=== PATIENT | male | born 1945 ===

== ENCOUNTER 2024-02-07 17:59 | Emergency (ER) | payer MEDICARE, SELFPAY ==
--- NOTE | ~2024-02-07 | XR_ITS ---
EXAM: XR foot RT min 3V DATE: 02/07/2024 18:59 HISTORY: no injury known previous excision done foot absces . COMPARISON: None available. FINDINGS: Decreased mineralization. No fracture or dislocation. No lytic or blastic lesion. Mild sca ttered degenerative changes. No erosion or periosteal change. Soft tissue swelling over the fifth MTP joint. Vascular calcifications. IMPRESSION: No acute osseous finding in the right foot. Soft tissue swelling over the fifth MTP joint . Reviewed, dictated and finalized at location K. O PROFESSOR IMPRESSION: No acute osseous finding in the right foot. Soft tissue swelling ov er the fifth MTP joint.
[2024-02-07 18:12] VITALS: BP 147/61; PULSE 64; RESP 16; TEMP 36.6; O2SAT 100
--- NOTE | 2024-02-07 18:20 | ED_ITS ---
HPI - Extremity Problem General Chief complaint: Extremity Problem,Nontraumatic Stated complaint: right foot pain Time Seen by Provider: 02/07/24 18:20 Source: patient, family, RN notes reviewed and old records reviewed Mode of arrival: ambulatory Limitations: no limitations History of Present Illness HPI Narrative: 78 year old male accompanied by daughter presents to express care with complaints of pain to the lateral distal and bottom of his right foot which started last night and increased today to area which he previously had excision of abscess on the foot at [facility] office on January 03. Patient has dementia and lives with his daughter and he does use a walker to assist with ambulation. Patient does have some mild redness to area where excision was made on his right foot lateral and bottom area with no open wound or drainage noted, patient reports tender on palpation. Daughter would like x-ray.Patient has been receiving Tylenol and Ibuprofen for his discomfort. MD Complaint: extremity pain (right foot) Onset (ago): day(s) (1) Location: right and other (lateral and plantar foot) Severity scale (1-10): 5 Quality: aching Related Data Home Medications Medication Instructions Recorded Confirmed Adult Aspirin EC Low Strength 81 mg BYMOUTH DAILY 02/07/24 02/07/24 atorvastatin 20 mg tablet mg 02/07/24 donepezil 10 mg tablet mg 02/07/24 finasteride 5 mg tablet mg 02/07/24 mesalamine 1.2 gram tablet,delayed g PO 02/07/24 release metoprolol succinate 25 mg mg PO 02/07/24 tablet,extended release 24 hr sertraline 25 mg tablet mg 02/07/24 tamsulosin 0.4 mg capsule mg PO 02/07/24 Allergies Allergy/AdvReac Type Severity Reaction Status Date / Time procaine [From Novocain] Allergy Unknown Verified 02/07/24 18:14 Review of Systems Review of Systems: CONSTITUTIONAL: Denies fever, chills, or sweats. EYES: Denies visual changes, redness, or discharge. ENT: Denies rhinorrhea, congestion, sore throat, or otalgia. CARDIOVASCULAR: Denies chest pain, palpitations, or edema. RESPIRATORY: Denies cough or dyspnea. GASTROINTESTINAL: Denies abdominal pain, nausea, vomiting, or diarrhea. GENITOURINARY: Denies dysuria or hematuria. SKIN: Denies rash or itching. MUSCULOSKELETAL: Denies back pain, positive for pain to right distal lateral and plantar aspect of foot, or myalgia. NEUROLOGIC: Denies headache, numbness, or weakness. PSYCHIATRIC: Denies anxiety or depression.has dementia All systems reviewed & are unremarkable except as noted in HPI and below PMFSH Past Medical History Medical History (Updated 02/09/24 @ 21:56 by Malini Oliver NP) Atrial fibrillation Dementia Elevated cholesterol Hypertension IBS (irritable bowel syndrome) Ulcerative colitis Social History Social History Smoking status: Never smoker Alcohol intake: former Alcohol use details: social Substance use: never Living arrangements: with family Occupation/Education: retired Gender identity (if verbalized by the patient): Male Comments At time of signature, agree with nursing past medical, surgical, social and family history. There is no relevant family history pertinent to the presenting complaint Exam Narrative: GENERAL:chronic ill -appearing, well-nourished, and in no acute distress. HEAD: Normocephalic, atraumatic. EYES: PERRLA and EOMI. ENT: Nares clear, no rhinorrhea or epistaxis. Mucous membranes moist.TM's normal with throat pink with no swelling NECK: Supple. no lymphadenopathy CHEST: Clear to auscultation. No respiratory distress. no cough noted SAO2 100% on room air HEART: Regular rate and rhythm. No murmur heard. Normal peripheral pulses. ABDOMEN: Soft, nontender, nondistended, normal active bowel sounds. EXTREMITIES: Normal range of motion. No edema. Tender red tissue area to the distal lateral planter aspect of right foot where previous abscess excised, no drainage or open wound noted, is tender to palpation no fluctuation of tissue or acute tissue warmth, is tender to palpation. SKIN: Warm, dry, no rash. NEURO: No focal deficits. Alert and oriented x3, does have dementia. Course Course Emergency Course: Patient is aware of diagnosis, understands and agrees to treatment plan.? Anticipatory guidance given.? Patient agrees to follow-up as directed and is aware of reasons to seek care at the emergency department. Portions of this record may have been created with voice recognition software Level of Care: Express Care Visit Vital Signs Vital signs: Vital Signs Temperature 36.6 C 02/07/24 18:12 Pulse Rate 64 02/07/24 18:12 Respiratory Rate 16 02/07/24 18:12 Blood Pressure 147/61 H 02/07/24 18:12 Pulse Oximetry 100 02/07/24 18:12 Oxygen Delivery Room Air 02/07/24 18:12 Temperature 36.6 C 02/07/24 18:12 Pulse Rate 64 02/07/24 18:12 Respiratory Rate 16 02/07/24 18:12 Blood Pressure 147/61 H 02/07/24 18:12 Pulse Oximetry 100 02/07/24 18:12 Oxygen Delivery Room Air 02/07/24 18:12 Reviewed MDM - Extremity (Nontraumatic) Differential Diagnosis Differential diagnosis: Likely cellulitis and other (red irritated tissue of right foot, foot pain right foot,) Medical Records Attestation: I reviewed the patient's medical records. Imaging Data My impression: no acute osseous findings, soft tissue swelling over 5 MTP joint Radiologist's impression: [facility] [address] [place] [address] XRay Report Signed Patient: Alec Blancahrd : 1945 MR#: [id number] Age: 78 Acct:[id number] Loc: [facility] ADM Date: 02/07/24Attending Dr: Ordering Physician: Malini Oliver APRN Date of Service: 02/07/24 Procedure(s): XR foot RT min 3V Accession Number(s): [id number] cc: Homero, Joshua Russo MD; Malini Oliver APRN~ EXAM: XR foot RT min 3V DATE: 02/07/2024 18:59 HISTORY: no injury known previous excision done foot absces . COMPARISON: None available. FINDINGS: Decreased mineralization. No fracture or dislocation. No lytic or blastic lesion. Mild scattered degenerative changes. No erosion or periosteal change. Soft tissue swelling over the fifth MTP joint. Vascular calcifications. IMPRESSION: No acute osseous finding in the right foot. Soft tissue swelling over the fifth MTP joint. Reviewed, dictated and finalized at location K. SELLER Dictated By: Michael Dwyer MD 02/07/241911 Signed By: <Electronically signed by Michael Dwyer MD in OV> Critical Care Time Critical Care Time Critical Care Time: No Discharge Plan Discharge Clinical Impression: Foot pain, right Patient Disposition: Home, Self-Care Condition: Stable Instructions: Antibiotic Form, Arthralgia (ED) Additional Instructions: Wash previous area of abscess excision with warm soapy water, rinsed and apply mupirocin ointment to area watch for increasing infection--redness, swelling, drainage Tylenol or ibuprofen follow up with PCP in 7-10 days for a wound check recheck if develop fever, chills, increasing symptom Go to the ER if your symptoms become worse of if ANY new symptoms develop Antibiotics as ordered complete all doses Follow-up with your 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 tomorrow to make an appointment Prescriptions: New mupirocin 2 % ointment 1 applic topical BID Qty: 15 0RF amoxicillin 500 mg tablet 500 mg PO Q8H Qty: 30 0RF No Action atorvastatin 20 mg tablet donepezil 10 mg tablet tamsulosin 0.4 mg capsule PO sertraline 25 mg tablet metoprolol succinate 25 mg tablet extended release 24 hr PO finasteride 5 mg tablet mesalamine 1.2 gram tablet,delayed release (DR/EC) PO Adult Aspirin EC Low Strength 81 mg BYMOUTH DAILY Follow-up/Referrals: Homero,Joshua Russo MD [Primary Care Provider] - Time of Disposition: 19:22 Quality [place] Coma Scale Eyes: Open Verbal: Oriented and Alert Motor: Follows Commands [place] Coma Total Score: 15
== END 2024-02-07 19:30 | disposition home or self-care (01) ==
PROVIDERS: Emergency Provider Registered Nurse; PCP Internal Medicine
DX: M79.671 Pain in right foot (principal); I48.91 Unspecified atrial fibrillation; F03.90 Unspecified dementia, unspecified severity, without behavioral disturbance, psychotic disturbance, mood disturbance, and anxiety; E78.00 Pure hypercholesterolemia, unspecified; I10 Essential (primary) hypertension
CPT/HCPCS: 73630; 99203; G0463